=== PATIENT | male | born 1995 | race Caucasian/White ===

== ENCOUNTER 2018-04-03 17:41 | Emergency (ER) | payer BC ==
--- NOTE | 2018-04-03 18:04 | Emergency Department Record ---
History of Present Illness - General Chief Complaint: Animal Bite Stated Complaint: CAT BITE/SCRATCHES Time Seen by Provider: 04/03/18 17:46 Source: Patient Mode of Arrival: Ambulatory Limitations: No limitations - History of Present Illness Initial Comments: Feral cat caught in a live trap out in the sun. Pt attempted to remove the cat and got bit to the right index finger and left forearm. Scratches to both forearms. Can place back into the trap at home. Cat is unknow to patient. MD Complaint: Animal bite Onset/Timin -: Minutes(s) Left: Forearm, Right: Hand Animal: Cat Description: Unknown animal Mechanism: Bite, Scratch Severity scale (1-10): 1 Context: Other Associated Symptoms: None - Related Data Patient Tetanus UTD (within 5 yrs): Yes Previous Rx's Medication Instructions Recorded Amoxicillin/Potassium Clav 1 tab PO TID 7 Days #21 tab 04/03/18 [Augmentin 500Mg/125Mg] Allergies Allergy/AdvReac Type Severity Reaction Status Date / Time No Known Drug Allergies Allergy Verified 04/03/18 17:51 Travel Screening - Travel/Exposure Within Last 30 Days Have you traveled within the last 30 days?: No - Travel/Exposure Within Last Year Have you traveled outside the [place] in the last year?: No - Additonal Travel Details Have you been exposed to anyone with a communicable illness?: No - Travel Symptoms Symptom Screening: None Review of Systems Constitutional: Denies: Chills, Fever, Malaise Eyes: Denies: Vision change ENT: Denies: Congestion Respiratory: Denies: Cough Cardiovascular: Denies: Chest pain Endocrine: Denies: Fatigue Gastrointestinal: Denies: Abdominal pain Musculoskeletal: Denies: Arthralgia Skin: Reports: As per HPI. Denies: Bruising, Rash Neurological: Reports: Tingling, Tremors Psychiatric: Reports: Anxiety Hematological/Lymphatic: Reports: Anemia Past Medical History - SOCIAL HISTORY Smoking Status: Former smoker Alcohol Use: Occasional Drug Use: None - RESPIRATORY Hx Respiratory Disorders: No - CARDIOVASCULAR Hx Cardio Disorders: No - NEURO Hx Neuro Disorders: No - GI Hx GI Disorders: No - Hx Genitourinary Disorders: No - ENDOCRINE Hx Endocrine Disorders: No - MUSCULOSKELETAL Hx Musculoskeletal Disorders: No - PSYCH Hx Psych Problems: Yes Hx Depression: Yes - HEMATOLOGY/ONCOLOGY Hx Hematology/Oncology Disorders: No Family Medical History Any Significant Family History?: Yes Physical Exam - General General Appearance: Alert, Oriented x3, Cooperative, No acute distress - Head Head exam: Atraumatic - Eye Eye exam: PERRL, EOMI - ENT ENT exam: Mucous membranes moist, Normal external ear exam, Normal orophraynx - Neck Neck exam: Normal inspection - Respiratory Respiratory exam: Normal lung sounds bilaterally. negative: Rhonchi - Cardiovascular Cardiovascular Exam: Regular rate, Normal rhythm - GI/Abdominal GI/Abdominal exam: Soft. negative: Tenderness - Extremities Extremities exam: Full ROM, Normal capillary refill. negative: Joint swelling, Tenderness (Right index finger with puncture wound x 2, left forearm with puncture wound x 3. Multiple scratches to both forearms. ) - Back Back exam: Reports: Normal inspection - Neurological Neurological exam: Alert, Normal gait, Oriented X3 - Psychiatric Psychiatric exam: Normal affect, Normal mood Course Vital Signs 04/03/18 17:45 Temperature 98.5 F Pulse Rate 83 Respiratory 18 Rate Blood Pressure 138/90 Pulse Ox 99 - Reevaluation(s) Reevaluation #1: 04/03/18 18:03 Animal control form completed. Cat is at the patients home n a trap. Reevaluation #2: 04/03/18 18:23 CAT and cage gone from home. Cage was from [facility] in [place]. Assume cage was picked up by them. Animal control contacted by Jacky GONZALEZ and aware of situation. They will follow with Tomer Eid in AM. Pt aware and will also follow up to see if animal in custody for observation. If not available to monitor pt needs to RETURN HERE FOR IMMUNIZATION FOR RABIES. If cat is in custody observation for one week. Pt understands importance of this. Medical Decision Making - Data Complexity MDM Data: X-Ray Ordered and/or Reviewed - Radiology Data -: Radiology Exam Interpreted by Myself Disposition Disposition: Discharge Clinical Impression: Cat bite of left forearm Disposition: Home, Self-Care Condition: (1) Good Instructions: Animal Bite (ED) Prescriptions: Amoxicillin/Potassium Clav [Augmentin 500Mg/125Mg] 1 tab PO TID 7 Days #21 tab Forms: Patient Portal Access Quality - Quality Measures Quality Measures: N/A - Blood Pressure Screening Does Patient Have Any of the Following: No Blood Pressure Classification: Hypertensive Reading Systolic Measurement: 138 Diastolic Measurement: 90 Screening for High Blood Pressure: Patient Exclusion, Hx of HTN [G9744] Pre-Hypertensive Follow-up Interventions: Follow-up with rescreen every year.
[2018-04-03] MEDS ORDERED: AMOXICILLIN/POTASSIUM CLAV 875MG/125MG TABLET PO ONE (18:22)
--- NOTE | 2018-04-04 16:32 | RADIOLOGY REPORT ---
ATE: 04/03/2018. EXAM: LEFT FOREARM. HISTORY: Pain. TECHNIQUE: Two views of the left forearm were performed. FINDINGS: No displaced fracture deformity. No radiopaque loose body. Mild soft tissue swelling. IMPRESSION: NO OSSEOUS ABNORMALITY. NO RADIOPAQUE LOOSE BODY. JOB NUMBER: [id number] MTDD
--- NOTE | 2018-04-04 16:34 | RADIOLOGY REPORT ---
DATE: 04/03/2018. EXAM: RIGHT SECOND DIGIT. HISTORY: Cat bite. TECHNIQUE: Three views of the right second digit were performed. FINDINGS: No evidence of fracture or dislocation. No radiopaque foreign body. IMPRESSION: NEGATIVE RIGHT SECOND DIGIT EXAMINATION. JOB NUMBER: [id number] MTDD
== END 2018-04-03 18:31 | disposition home or self-care (01) ==
LOC: ER 17:41
DX: S61.230A Puncture wound without foreign body of right index finger without damage to nail, initial encounter (principal); S51.832A Puncture wound without foreign body of left forearm, initial encounter; W55.01XA Bitten by cat, initial encounter; Z87.891 Personal history of nicotine dependence
CPT/HCPCS: 73140; 99283; 99284

== ENCOUNTER 2018-12-26 01:49 | Emergency (ER) | payer BC ==
[2018-12-26] MEDS ORDERED: DIAZEPAM 5 MG TABLET PO ONE (01:58)
[2018-12-26] MEDS ORDERED: KETOROLAC 60 MG/2 ML VIAL IM STA (01:58)
--- NOTE | 2018-12-26 02:05 | Emergency Department Record ---
History of Present Illness - General Chief Complaint: Difficulty Breathing Stated Complaint: NECK PAIN/JENNY Time Seen by Provider: 12/26/18 01:54 Source: Patient Mode of Arrival: Ambulatory Limitations: No limitations - History of Present Illness Initial Comments: 23 yo male presents to ED for evaluation of right sided neck pain symptoms that began approximately 48 hours ago after several episodes of vomiting Tuesday evening. Patient reports that he was wretching when he believes that he "strained a muscle near my collar bone". Patient denies fevers, chills, cough, or abdominal pain symptoms. Patient reports pain when attempting to take a deep breath. MD Complaint: Pain with inspiration Onset/Timin -: Days(s) Radiation: Neck, Other Severity: Moderate Severity scale (1-10): 7 Quality: Sharp Consistency: Constant Improves With: Nothing Worsens With: Nothing Context: Recent illness Associated Symptoms: Nausea/vomiting - Related Data Home Oxygen Therapy: No Previous Rx's Medication Instructions Recorded Diazepam [Valium] 5 mg PO Q8H PRN #10 tab 12/26/18 Ibuprofen [Motrin] 800 mg PO Q6H PRN #30 tab 12/26/18 Allergies Allergy/AdvReac Type Severity Reaction Status Date / Time No Known Drug Allergies Allergy Verified 12/26/18 01:57 Travel Screening - Travel/Exposure Within Last 30 Days Have you traveled within the last 30 days?: No - Travel/Exposure Within Last Year Have you traveled outside the [place] in the last year?: No - Additonal Travel Details Have you been exposed to anyone with a communicable illness?: No - Travel Symptoms Symptom Screening: None Review of Systems Constitutional: Denies: Chills, Fever, Malaise, Night sweats Eyes: Denies: Eye discharge, Eye pain ENT: Denies: Congestion, Ear pain, Epistaxis Respiratory: Denies: Cough, Dyspnea Cardiovascular: Denies: Chest pain, Dyspnea on exertion Endocrine: Denies: Fatigue, Heat or cold intolerance Gastrointestinal: Denies: Abdominal pain, Nausea, Vomiting Genitourinary: Denies: Incontinence, Retention Musculoskeletal: Reports: Myalgia (Pain over the collar bone region). Denies: Arthralgia, Back pain, Gout, Joint swelling Skin: Denies: Bruising, Change in color Neurological: Denies: Abnormal gait, Confusion, Headache Psychiatric: Denies: Anxiety Hematological/Lymphatic: Denies: Anemia, Blood Clots Past Medical History - SOCIAL HISTORY Smoking Status: Former smoker Alcohol Use: Occasional Drug Use: Occasional Drug Use Detail:: Marijuana - RESPIRATORY Hx Respiratory Disorders: No - CARDIOVASCULAR Hx Cardio Disorders: No - NEURO Hx Neuro Disorders: No - GI Hx GI Disorders: No - Hx Genitourinary Disorders: No - ENDOCRINE Hx Endocrine Disorders: No - MUSCULOSKELETAL Hx Musculoskeletal Disorders: No - PSYCH Hx Psych Problems: Yes Hx Depression: Yes - HEMATOLOGY/ONCOLOGY Hx Hematology/Oncology Disorders: No Family Medical History Any Significant Family History?: No Physical Exam - General General Appearance: Alert, Oriented x3, Cooperative, Moderate distress (Appears uncomfortable on examination) Limitations: No limitations - Head Head exam: Atraumatic, Normocephalic, Normal inspection Head exam detail: negative: Abrasion, Contusion, Francisco's sign, General tenderness, Hematoma, Laceration - Eye Eye exam: Normal appearance. negative: Conjunctival injection, Periorbital swelling, Periorbital tenderness, Scleral icterus - ENT Ear exam: negative: Auricular hematoma, Auricular trauma Nasal Exam: negative: Active bleeding, Discharge, Dried blood, Foreign body Mouth exam: negative: Drooling, Laceration, Muffled voice, Tongue elevation Throat exam: negative: Tonsillar erythema, Tonsillomegaly, R peritonsillar mass , L peritonsillar mass - Neck Neck exam: Normal inspection, Other (No crepitation over the neck, supraclavicalar region on examination.). negative: Meningismus, Tenderness - Respiratory Respiratory exam: Normal lung sounds bilaterally. negative: Respiratory distress, Rhonchi, Stridor, Wheezes - Cardiovascular Cardiovascular Exam: Regular rate, Normal rhythm, Normal heart sounds - GI/Abdominal GI/Abdominal exam: Soft. negative: Distended, Rebound, Rigid, Tenderness - Rectal Rectal exam: Deferred - exam: Deferred - Extremities Extremities exam: Normal inspection. negative: Pedal edema, Tenderness - Back Back exam: Denies: CVA tenderness (R), CVA tenderness (L) - Neurological Neurological exam: Alert, Normal gait, Oriented X3 - Psychiatric Psychiatric exam: Normal affect, Normal mood - Skin Skin exam: Normal color. negative: Abrasion Type of lesion: negative: abrasion Course Vital Signs 12/26/18 01:53 Temperature 97.6 F Pulse Rate [ 75 Pulse Ox Probe] Respiratory 20 Rate Blood Pressure 127/91 [Left Arm] Pulse Ox 97 - Reevaluation(s) Reevaluation #1: 12/26/18 02:38 CXR: No acute process No mediastinal air No subcutaneous air present Patient was updated on all results, reports improvement in his symptoms on reassessment. Patient's symptoms appears c/w cervical strain. Will treat with Motrin 800 mg and Valium 5 mg as directed. Disposition Disposition: Discharge Clinical Impression: Cervical strain, acute Qualifiers: Encounter type: initial encounter Qualified Code(s): S16.1XXA - Strain of muscle, fascia and tendon at neck level, initial encounter Disposition: Home, Self-Care Condition: (2) Stable Instructions: Cervical Strain (ED) Additional Instructions: Return to ED if your symptoms worsen or if you have any concerns. Motrin 800 mg and Valium 5 mg as directed. Follow-up with your family doctor in 3-5 days as directed. Prescriptions: Diazepam [Valium] 5 mg PO Q8H PRN #10 tab PRN Reason: Spasms Ibuprofen [Motrin] 800 mg PO Q6H PRN #30 tab PRN Reason: Pain - Mild To Moderate (1-7) Forms: Patient Portal Access Time of Disposition: 02:41 Quality - Quality Measures Quality Measures: N/A - Blood Pressure Screening Does Patient Have Any of the Following: No Blood Pressure Classification: Hypertensive Reading Systolic Measurement: 127 Diastolic Measurement: 91 Screening for High Blood Pressure: < First Hypertensive BP, F/U Documented > [ G8950] First Hypertensive Follow-up Interventions: Referral to alternative/primary care provider.
--- NOTE | 2018-12-28 14:33 | RADIOLOGY REPORT ---
EXAM: CHEST, TWO VIEWS HISTORY: CHEST PAIN. TECHNIQUE: Two views of the chest were obtained. Comparison: Chest radiograph 11/23/18. FINDINGS: The cardiac silhouette is within normal size limits. No focal pulmonary consolidation. No pleural effusion or pneumothorax. No acute osseous findings. IMPRESSION: NO ACUTE LUNG FINDINGS. JOB NUMBER: [id number] MTDD
== END 2018-12-26 02:47 | disposition home or self-care (01) ==
LOC: ER 01:49
DX: S16.1XXA Strain of muscle, fascia and tendon at neck level, initial encounter (principal); R06.00 Dyspnea, unspecified; R11.2 Nausea with vomiting, unspecified; X50.3XXA Overexertion from repetitive movements, initial encounter; Z87.891 Personal history of nicotine dependence
CPT/HCPCS: 71046; 96372; 99283; 99284; J1885